=== PATIENT | male | born 1975 | race Caucasian/White ===

== ENCOUNTER 2018-12-12 11:06 | Outpatient (CLI) | payer MEDICAID, SELFPAY ==
--- NOTE | 2018-12-12 11:03 | DI.RAD_ITS ---
SYMPTOM/DIAGNOSIS: PAIN RIGHT SHOULDER: Two views. No priors. There are mild degenerative changes seen at the acromioclavicular joint. The glenohumeral joint appears well maintained. The bones are intact and normally mineralized. The soft tissues are unremarkable. IMPRESSION: No acute abnormality. Mild degenerative changes of the right AC joint.
== END 2018-12-12 11:26 ==
PROVIDERS: PCP General Practice; Visit Provider Physician Assistant Surgical
DX: M25.511 Pain in right shoulder (principal); M19.011 Primary osteoarthritis, right shoulder
CPT/HCPCS: 73030

== ENCOUNTER 2019-02-05 00:36 | Outpatient (CLI) | payer MEDICAID, SELFPAY ==
--- NOTE | 2019-02-05 10:50 | DI.MRI_ITS ---
SYMPTOM/DIAGNOSIS: TENDINITIS RIGHT SHOULDER MRI RIGHT SHOULDER: Routine noncontrast examination was performed. There is intermediate signal seen in the supraspinatus tendon anteriorly consistent with tendinosis. The infraspinatus, teres minor, and subscapularis tendons show normal signal The rotator cuff muscle shows normal signal and size. No significant muscular fatty atrophy is identified. The biceps tendon has a normal appearance and location. There is increased signal seen in the superior and posterior labrum consistent with a tear. The remainder of the labrum shows no acute abnormality. The articular cartilage at the glenohumeral joint appears well maintained. Mild hypertrophic changes are seen at the acromioclavicular joint consistent with osteoarthritis. Marrow signal is otherwise within normal limits. No evidence of an occult fracture or avascular necrosis is seen. The ligaments appear unremarkable. No focal fluid collection or soft tissue mass is appreciated. IMPRESSION: Hyperintense signal seen in the posterior superior labrum suspicious for a tear. 2. Tendinosis of the supraspinatus tenon but no evidence of a rotator cuff tear.
== END 2019-02-05 00:56 ==
PROVIDERS: PCP General Practice; Visit Provider Orthopaedic Surgery
DX: M75.81 Other shoulder lesions, right shoulder (principal); M25.511 Pain in right shoulder
CPT/HCPCS: 73221

== ENCOUNTER 2019-03-23 10:30 | Outpatient (CLI) | payer MEDICAID, SELFPAY ==
--- NOTE | 2019-03-23 10:31 | HPE_ITS ---
Assessment and Plan (1) DJD of right AC (acromioclavicular) joint: Current visit: No Status: Acute Plan: Educated patient on surgery covering surgical technique, recovery process, benefits and risks including but not limited to risk of infection, blood clot, damage to soft tissue/blood vessels/nerves in detail. After discussion patient gives verbal understanding of risks and elects to proceed with scheduling surgery. Patient had opportunity to have questions answered to their satisfaction. They will contact office if issues arise. Patient will continue to be scheduled for right distal clavicle excision with Dr. Soliman. History of Present Illness Narrative: Mr. Doshi is a 44-year-old right-hand dominant male who presents to clinic for pre-operative visit for scheduled right distal clavicle excision with Dr. Soliman. Patient has been experiencing severe right shoulder discomfort for several months. He has numerous trauma in the past that did not require formal intervention. Unfortunately, he has been experiencing right shoulder pain that interferes with his ability to throw and causes him to wake up frequently throughout the night. Pain is elicited with daily activities as well including reaching to the back seat, tucking in his shirt and reaching overhead. When he did not experience improvement with an injection and PT he underwent a MRI. As per Dr. Soliman's note on 02/06/19 his MRI showed significant DJD of the AC joint and no evidence of full-thickness rotator cuff tear. Due to his continued pain despite conservative therapy he was offered surgical intervention and elected to proceed. Denies any recent injury or trauma. Pertinent Surgical Information Denies past medical history of: Hypertension, stroke, cardiac issues, angina, asthma, COPD, sleep apnea, renal issues, liver issues, hepatitis, gastrointestinal issues, ulcers, hyperlipidemia, bleeding disorders, seizures, migraines, anxiety, depression, diabetes, autoimmune disorders, thyroid issues Denies prior complications from surgery or anesthesia. However, states he noticed difficulty focusing his vision following his lumbar spine surgery. Reports he continues to have difficulty when attempting to focus. Denies any additional issues or complications. Review of Systems Constitutional Denies fever(s), Denies frequent falls and Denies headache(s) Eyes Denies change in vision ENT Denies dizziness, Denies ear discharge, Denies headache(s), Denies epistaxis, Denies nasal discharge and Denies sore throat Cardiovascular Denies chest pain, Denies rapid heart rate, Denies irregular heart rhythm, Denies dyspnea, Denies dyspnea on exertion and Denies slow heart rate Respiratory Denies cough, Denies dyspnea, Denies dyspnea on exertion and Denies wheezing Gastrointestinal Denies abdominal pain, Denies melena, Denies hematochezia, Denies constipation, Denies diarrhea, Denies nausea and Denies vomiting Genitourinary Denies hematuria, Denies dysuria and Denies urinary urgency Musculoskeletal Reports as per HPI, Denies numbness and Denies tingling Neurologic Denies dizziness, Denies frequent falls, Denies headache(s), Denies numbness and Denies tingling Psychiatric Denies anxiety and Denies depression Allergic/Immunologic Denies wheezing PFSH Medical History (Updated 03/23/19 @ 10:32 by Karen Wong) DJD of right AC (acromioclavicular) joint (Acute) Surgical History (Updated 03/23/19 @ 10:14 by Karen Wong) Appendectomy Cholecystectomy History of spinal surgery (Acute) lower lumbar unknown details Family History (Updated 03/23/19 @ 10:16 by Karen Wong) Maternal Grandfather Stroke Myocardial infarct Paternal Grandfather Myocardial infarct Meds Home Medications Medication Instructions Recorded Confirmed Type Unknown [No Known Home Meds] 01/23/19 03/23/19 History Allergies Allergy/AdvReac Type Severity Reaction Status Date / Time No Known Drug Allergies Allergy Unverified 03/23/19 10:32 Exam Const General: cooperative and no acute distress [facility] Head: normal to inspection, normocephalic and atraumatic Ears: external ears normal General nose exam: external nose normal and no nasal discharge Face and sinus: face symmetric Mouth: oral mucosae normal, lip normal, tongue normal and moist mucous membranes Teeth and gingiva: dentition normal Throat: posterior oropharynx normal Eyes General: appearance normal, both eyes and all related structures Pupils: PERRL EOM: EOM intact bilaterally Neck Neck: trachea midline Carotids: normal carotid upstroke Lymphatic: no lymphadenopathy noted Resp Effort & Inspection: normal respiratory effort and able to speak in complete sentences Auscultation: clear to auscultation bilaterally, no rales, no rhonchi and no wheezes Cardio Heart Sounds: S1 normal, S2 normal and no murmurs Pulses: radial pulses present bilaterally Skin General skin exam: no rashes or lesions noted
== END 2019-03-23 10:50 ==
PROVIDERS: PCP General Practice; Visit Provider Orthopaedic Surgery
DX: M19.011 Primary osteoarthritis, right shoulder (principal); Z01.818 Encounter for other preprocedural examination
CPT/HCPCS: NC

== ENCOUNTER 2019-03-26 09:29 | Day surgery (SDC) | payer MEDICAID, SELFPAY ==
[2019-03-26] VITALS (8 sets, daily range): BP systolic 101–133; BP diastolic 65–95; PULSE 59–73; RESP 11–17; TEMP 36.4–37.1; O2SAT 96–99
[2019-03-26] MEDS: Lactated Ringers 1,000 ML 80 ML IV (10:05)
[2019-03-26] MEDS: ceFAZolin 2 GM/50 ML BAG IVPB (12:26)
--- NOTE | 2019-03-26 13:17 | W.PM.DSUDISC ---
Discharge Plan Disposition Patient Disposition: HOME Condition: Good Discharge Details Reason For Visit: Excision R distal clavicle Attending Provider: Yung Soliman Primary Care Provider: Jose R Peña Home Meds and New Rx's Prescriptions: New hydrocodone-acetaminophen 5-325 mg tablet 1 tab PO Q6H PRN (Reason: pain) Qty: 10 RF: 0 Continued naproxen sodium 220 mg Capsule 220 mg PO PRN PRNRF: 0 Discharge Instructions Additional Instructions: Sling for comfort. May take R arm out of sling as often and for as long as your discomfort allows. Wean yourself out of sling completely when your pain is minimal. May remove dressings,shower and get incision wet after 48 hours. Leave incision uncovered when it is dry and sealed. Apply icebag to top of R shoulder 4 times/day for 1 hour each time to decrease pain and swelling. Use R arm as much as your discomfort allows you to. Outpatient physical therapy for ROM of R shoulder on or Tuesday. Follow up with in 2 weeks. Take 2 naprosyn tabs (220 mg each) twice/day for 10 days to decrease swelling and inflammation. Take hydrocodone for breakthru pain, if needed. Referrals: Yung Soliman MD [ [facility] STAFF PHYSICIAN] - (f/u in 2 weeks.) Equipment/Supplies: Sling Activity:: Activity as Tolerated Remove Dressings/Wound Care:: 48 hours Shower/Bathe:: 48 hours Diet:: As Tolerated Discharge Orders Discharge Orders: Discharge Order (Routine); Ordered 03/26/19 Ordered By: Yung Soliman DS: Diagnosis Discharge Diagnosis (1) DJD of right AC (acromioclavicular) joint: Status: Acute
[2019-03-26] MEDS: oxyCODONE-CR 10 MG TABCR PO (15:02)
--- NOTE | 2019-03-26 17:17 | ROE_ITS ---
DATE OF PROCEDURE: March 26, 2019 PREOPERATIVE DIAGNOSIS: DJD AC joint, right. POSTOPERATIVE DIAGNOSIS: Same. PROCEDURE: Excision of the distal clavicle on the right. ANESTHESIA: General, Jose R Kapoor CRNA SURGEON: Yung Soliman M.D. BENEFITS ANALYST: Wiley Soriano INDICATIONS: This is a 44-year-old white male with persistent right shoulder pain, worsening over th e last years' time. This is interfering with his work activities, as well as recreational activities . Examination showed the AC joint is the source of pain. The rotator cuff appeared intact. Subacro mial space injections failed to alleviate his discomfort. Distal clavicle excision was recommended t o alleviate his pain on a permanent basis. The risks and complications of the procedure were explain ed to the patient in detail preoperatively. PROCEDURE: The patient was taken to the Operating Room on 03/26/19. He was placed supine on the opera ting table and a general anesthetic was administered. He was placed in the jackson chair position. T he right shoulder was then prepped and draped free in the usual sterile fashion. A longitudinal incision about 3 inches in length was made, centered over the AC joint on the right. The incision was carried down to the AC joint capsule. A longitudinal incision was made in the AC jessi int capsule and the distal clavicle was subperiosteal exposed. The distal centimeter of the clavicl e was then transected using the oscillating saw and excised. On inspection there was marked hypertro phic spurring of the distal clavicle with no normal articular cartilage visible on gross inspection. The resected distal clavicle was irrigated with saline solution and then packed with bone wax to eubanks it postoperative bleeding. All bleeders were cauterized. The wound margins were infiltrated with 0. 5% Marcaine with an epinephrine solution from the skin down to the AC joint capsule. The AC joint ca psule and periosteum over the distal clavicle were approximated with interrupted [id number] sutu res of #1 Vicryl suture material. The skin and subcu were approximated with a running subcuticular c losure with #4-0 Vicryl, supplemented with Steri-Strips. The wound was dressed with Xeroform gauze, sterile gauze 4x4's, ABD pad and taped in place for a light pressure dressing. The right arm was britni cammy in a sling. The patient's anesthesia was reversed without complication. Blood loss was 25 cc's. The patient was discharged to recovery in good condition. The patient was discharged home from the Day Surgery Unit when fully recovered from his general anest hesia. He was given instructions to use the sling for comfort. He may leave his right arm out of th e sling as often and for as long as discomfort allows. He may wean himself out of his sling as soon as his pain allows. He may remove his dressings, shower and get his incision wet in 48 hours. He ca n leave his incision uncovered when it is dry and sealed. He will take [id number] Naprosyn 220 mg, two tablets b.i.d. for ten days. He was given a prescription for breakthrough pain of Hydrocodo ne with APAP 5/325, one tablet p.o. q6h p.r.n. He will begin outpatient physical therapy for range o f motion of his right shoulder on or 03/30/19. He will follow-up with me in two weeks.
== END 2019-03-26 15:31 | disposition home or self-care (01) ==
PROVIDERS: PCP General Practice; Visit Provider Orthopaedic Surgery
PROC: (CPT 23120; principal; 2019-03-26 11:15)
DX: M19.011 Primary osteoarthritis, right shoulder (principal); M25.511 Pain in right shoulder
CPT/HCPCS: 23120; J0131; J0690; J1100; J1200; J1885; J2250; J2405; J3010; L3650

== ENCOUNTER 2020-01-02 11:47 | Emergency (ER) | payer MEDICAID, SELFPAY ==
[2020-01-02 11:51] VITALS: BP 127/92; PULSE 63; RESP 15; TEMP 37.1; O2SAT 100
--- NOTE | 2020-01-02 12:15 | DI.RAD_ITS ---
EXAM: XR WRIST RT COMPLETE CLINICAL HISTORY: Laceration with emliy hook. TECHNIQUE: 2D digital imaging was performed. COMPARISON: No exams were available for comparison FINDINGS: BONES: No acute fracture is present. No bony destructive lesion is seen. JOINTS: The carpal bones are normally aligned. SOFT TISSUE: Normal. IMPRESSION: Unremarkable radiographs of the right wrist. DATA REPOSITORY: RADIATION DOSE DELIVERED:
[2020-01-02] MEDS: Lidocaine 2% Multi-Dose 50 ML VIAL IJ (13:17)
--- NOTE | 2020-01-02 13:22 | ED.GENADUL_ITS ---
Discharge Plan Disposition Patient Disposition: HOME Discharge Details Chief Complaint: Laceration Clinical Impression: Laceration of wrist Primary Care Provider: Unknown,Unknown ED Provider: Alberto Thakkar Home Meds and New Rx's Prescriptions: Continued naproxen sodium 220 mg Capsule 220 mg PO PRN PRNRF: 0 Discharge Instructions Instructions: Laceration (ED) Additional Instructions: Keep the area clean and dry, change antibiotic dressing daily. Avoid hyperextension or flexion and attempt to not tear out the sutures. Grti-szk-uupnliz Tylenol and/or Motrin as directed for discomfort. Please watch for new or worsening symptoms and return to the ER for any concerns. Sutures removed in approximately 10 days Medical Decision Making Patient who is right-hand dominant presents for a right hand-wrist laceration. Tetanus up-to-date. Neuro, vascular, tendon intact. Will obtain x-ray to rule any bony involvement or foreign body and then will repair X-ray unremarkable as read by me and confirmed by radiology. Laceration repaired without difficulty. See procedural note. Antibiotic dressing and Mauricio wrap applied. Patient has no additional questions or concerns HPI General Mode of arrival: ambulatory . Date/Time Provider Initiated Documentation: 01/02/20 11:57 . Limitations to Documentation: no limitations . Information obtained by: patient . HPI Narrative: 44-year-old gentleman who is right-hand dominant, presents after cutting himself accidentally while painting on a emily hook. He reports mild discomfort at the site of laceration. Denies numbness, tingling, weakness. Tetanus status not the date. No additional questions or concerns Related Data Home Medications Medication Instructions Recorded Confirmed naproxen sodium 220 mg PO PRN PRN 03/23/19 01/02/20 Allergies Allergy/AdvReac Type Severity Reaction Status Date / Time No Known Drug Allergies Allergy Verified 01/02/20 12:12 General Stated Complaint: Laceration SCAR: 4 Review of Systems Constitutional Constitutional: Denies weakness Gastrointestinal Gastrointestinal: Denies nausea Musculoskeletal Musculoskeletal: Denies tingling Integumentary/Breasts Skin/Breast: Denies rash Neurologic Neurologic: Denies tingling and Denies weakness [facility] Medical History DJD of right AC (acromioclavicular) joint (Acute) Surgical History Appendectomy Cholecystectomy History of spinal surgery (Acute) lower lumbar discectomy unknown details Family History Maternal Grandfather Myocardial infarct Stroke Paternal Grandfather Myocardial infarct Other Cancer Social History Smoking/Tobacco Use Status: Former Tobacco Use Alcohol Intake: never Drug use: Never Substance use type: does not use Current gender identity: male Do you feel safe at home: Yes Do you feel safe in your relationship?: Yes Exam Const General: cooperative, healthy appearing, comfortable and no acute distress Orientation: alert and awake HENMT Head: normal to inspection, normocephalic and atraumatic Mouth: moist mucous membranes Eyes Conjunctivae: conjunctivae normal Neck Neck: normal visual inspection, trachea midline and supple Resp Effort & Inspection: normal respiratory effort and able to speak in complete sentences Cardio Rate: regular rate Rhythm: regular rhythm Skin General skin exam: no rashes or lesions noted Neuro General: patient alert, patient awake, moves all extremities and no focal motor deficits Sensory Exam: no sensory deficits noted Extrem General: full ROM and capillary refill normal Hand/finger images: 1. Half centimeter well approximated laceration. No active bleeding. No foreign body. Neuro, vascular, tendon intact 2. 2.5 cm well approximated laceration. No active bleeding. No foreign body. Neuro, vascular, tendon intact Psych Appearance: grossly normal Mental Status: mental status grossly normal Course Vital Signs Vital signs: Vital Signs Temperature 37.1 C 01/02/20 11:51 Pulse 63 01/02/20 11:51 Respiratory Rate 15 01/02/20 11:51 Blood Pressure 127/92 H 01/02/20 11:51 Pulse Oximetry 100 01/02/20 11:51 Temperature 37.1 C 01/02/20 11:51 Temperature Source Temporal Artery Scan 01/02/20 11:51 Pulse 63 01/02/20 11:51 Respiratory Rate 15 01/02/20 11:51 Respiratory Effort Non-Labored 01/02/20 11:55 Blood Pressure 127/92 H 01/02/20 11:51 Blood Pressure Position Sitting 01/02/20 11:51 Pulse Oximetry 100 01/02/20 11:51 Oxygen Delivery Method Room Air 01/02/20 11:51 Oxygen Flow Rate 0 01/02/20 11:51 Pain Level 1 01/02/20 11:51 Procedures Laceration Laceration 1: Site: hand Side (If applicable): right Size (cm): 0.5 Description: linear Depth: simple, single layer Local Anesthetic: Lidocaine 2% Amount of anesthesia used (mL): 2 Pre-repair: wound explored, irrigated extensively and deep structures intact Skin layer closed with: nylon Size (cm): 4-0 Number of sutures: 1 Technique: simple, interrupted Laceration 2: Site: hand Side (If applicable): right Size (cm): 2.5 Description: linear Depth: simple, single layer Local Anesthetic: Lidocaine 2% Amount of anesthesia used (mL): 4 Pre-repair: wound explored, irrigated extensively and deep structures intact Skin layer closed with: nylon Size (cm): 4-0 Number of sutures: 5 Technique: simple, interrupted
== END 2020-01-02 13:30 | disposition home or self-care (01) ==
LOC: ER 13:53
PROVIDERS: Emergency Provider Physician Assistant
DX: S61.511A Laceration without foreign body of right wrist, initial encounter (principal); W26.8XXA Contact with other sharp object(s), not elsewhere classified, initial encounter
CPT/HCPCS: 12002; 90471; 99283; 73110; 99281

== ENCOUNTER 2020-02-21 12:54 | Emergency (ER) | payer MEDICAID, SELFPAY ==
[2020-02-21 13:01] VITALS: BP 132/77; PULSE 89; RESP 18; TEMP 38.3; O2SAT 95
--- NOTE | 2020-02-21 13:44 | ED.GENADUL_ITS ---
Discharge Plan Disposition Patient Disposition: HOME Condition: Stable Discharge Details Chief Complaint: Fever Clinical Impression: Pharyngitis Primary Care Provider: None,None ED Provider: Alberto Thakkar Home Meds and New Rx's Prescriptions: Continued naproxen sodium 220 mg Capsule 220 mg PO PRN PRNRF: 0 Discharge Instructions Instructions: Pharyngitis (ED) Additional Instructions: Rapid strep test negative. Culture pending. COVID pending. Quarantine likely discussed. Rest, plenty of fluids to avoid dehydration, [id number] medications as directed for symptomatic control. Please watch for new or worsening symptoms and return to the ER for any concerns. I do recommend that you contact your 's primary care provider as you have planned to establish a new local primary care provider for yourself Stand Alone Forms: POSITIVE COVID-19/TO BE TESTED Medical Decision Making 45-year-old gentleman with 1 day history of sore throat, swollen glands, body aches. He does present with a mild fever here in the ER. He appears well, nontoxic. Airway is patent. Lungs are clear to auscultation. Feels that this is most likely a viral pharyngitis but will obtain rapid strep to rule out strep pharyngitis. Patient is primarily concerned of COVID. Will obtain COVID swab. Lungs are clear to auscultation. O2 sats are 95% on room air. I do not believe that hematology laboratories or chest x-ray are indicated Rapid strep negative, culture pending. Covid Pending. Patient is comfortable discharge at this time Medical Records Medical records reviewed: Yes I reviewed the patient's medical records. HPI General Mode of arrival: ambulatory . Date/Time Provider Initiated Documentation: 02/21/20 13:09 . Limitations to Documentation: no limitations . Information obtained by: patient . HPI Narrative: 45-year-old male with no significant past medical history presenting to the ER with sore throat, swollen glands, mild body aches and chills. He took [id number] medication with some relief. Reports the pain is mild at rest moderate with swallowing. He denies obvious fever. He denies headache, posterior neck pain, chest pain, shortness of breath, cough abdominal pain, nausea, vomiting, dysuria, diarrhea, skin rash. No recent travel. Reports that his son had similar symptoms 1 week ago. He is primarily concerned about COVID Related Data Home Medications Medication Instructions Recorded Confirmed naproxen sodium 220 mg PO PRN PRN 03/23/19 02/21/20 Allergies Allergy/AdvReac Type Severity Reaction Status Date / Time No Known Drug Allergies Allergy Verified 02/21/20 13:04 General Stated Complaint: Fever SCAR: 3 Review of Systems Constitutional Constitutional: Denies fatigue, Denies fever(s) and Denies headache(s) Eyes Eyes: Denies eye discharge ENT Ears, Nose, Mouth, and Throat: Denies headache(s), Denies nasal discharge, Denies neck pain and Reports sore throat Cardiovascular Cardiovascular: Denies chest pain and Denies dyspnea Respiratory Respiratory: Denies cough and Denies dyspnea Gastrointestinal Gastrointestinal: Denies abdominal pain, Denies nausea and Denies vomiting Genitourinary Genitourinary: Denies dysuria Musculoskeletal Musculoskeletal: Denies neck pain Integumentary/Breasts Skin/Breast: Denies rash Neurologic Neurologic: Denies headache(s) Endocrine Endocrine: Denies fatigue PFS Medical History DJD of right AC (acromioclavicular) joint (Acute) Surgical History Appendectomy Cholecystectomy History of spinal surgery (Acute) lower lumbar discectomy unknown details Family History Maternal Grandfather Myocardial infarct Stroke Paternal Grandfather Myocardial infarct Other Cancer Social History Smoking/Tobacco Use Status: Former Tobacco Use Alcohol Intake: never Drug use: Never Substance use type: does not use Current gender identity: male Do you feel safe at home: Yes Do you feel safe in your relationship?: Yes Exam Const General: cooperative, healthy appearing, comfortable and no acute distress Orientation: alert, awake and oriented x3 HENMT Head: normal to inspection, normocephalic and atraumatic Ears: external ears normal, TM's normal bilaterally and EAC's normal Mouth: moist mucous membranes Throat: uvula midline, posterior oropharynx abnormal erythema; no exudates, uvula not displaced and no uvular edema Eyes Conjunctivae: conjunctivae normal Sclera: sclerae normal Neck Neck: normal visual inspection, full ROM, no meningeal signs, trachea midline, supple and tender (Lymphadenopathy, anterior-superior, shotty in nature) Resp Effort & Inspection: normal respiratory effort and able to speak in complete sentences Auscultation: clear to auscultation bilaterally Cardio Rate: regular rate Rhythm: regular rhythm GI Palpation: soft and nontender Skin General skin exam: no rashes or lesions noted Neuro General: patient alert, patient awake, patient oriented x3, moves all extremities and no focal motor deficits Cranial Nerves: CN's II-XI intact bilaterally Cognition: normal cognition Speech: speech normal Motor: muscle tone normal throughout Sensory Exam: no sensory deficits noted Psych Appearance: grossly normal Mental Status: mental status grossly normal Course Vital Signs Vital signs: Vital Signs Temperature 38.3 C H 02/21/20 13:01 Pulse 89 02/21/20 13:01 Respiratory Rate 18 02/21/20 13:01 Blood Pressure 132/77 02/21/20 13:01 Pulse Oximetry 95 02/21/20 13:01 Temperature 38.3 C H 02/21/20 13:01 Temperature Source Temporal Artery Scan 02/21/20 13:01 Pulse 89 02/21/20 13:01 Respiratory Rate 18 02/21/20 13:01 Respiratory Effort Non-Labored 02/21/20 13:04 Blood Pressure 132/77 02/21/20 13:01 Blood Pressure Position Sitting 02/21/20 13:01 Pulse Oximetry 95 02/21/20 13:01 Oxygen Delivery Method Room Air 02/21/20 13:01 Oxygen Flow Rate 0 02/21/20 13:01 Pain Level 5 02/21/20 13:01 Lab/Test Results Lab/Test Results: POC Strep Test-KELBY(Rapid) Start: 02/21/20 13:09 Freq: .Rapid Strep Test Status: Active Protocol: Document 02/21/20 13:31 PS (Rec: 02/21/20 13:31 PS [email or web address]) Strep test-KELBY(Rapid)-POC POC-Strep test-KELBY (Rapid) Negative POC-Strep test-KELBY (Rapid) Negative
[2020-02-23 14:14] LABS: SARS-CoV-2 RNA Undetected (Undetected); SARS-CoV-2 Specimen Source Nasopharynx
--- NOTE | 2020-02-27 09:47 | NUR.NOTE ---
Patient called at 0947 requesting results of covid tested. advised patient that test results were negative for covid.
== END 2020-02-21 14:05 | disposition home or self-care (01) ==
PROVIDERS: Emergency Provider Physician Assistant
DX: J02.9 Acute pharyngitis, unspecified (principal); R50.9 Fever, unspecified; Z11.59 Encounter for screening for other viral diseases
CPT/HCPCS: 36415; 87880; 99283; U0003

== ENCOUNTER 2020-04-11 14:59 | Outpatient (REF) | payer MEDICAID, SELFPAY ==
[2020-04-11 20:23] LABS: ALT 30 U/L (16-63); AST 23 U/L (15-37); Albumin 4.4 g/dL (3.4-5.0); Alkaline Phosphatase 81 U/L (46-116); Anion Gap 4.1 mmol/L (3-11); BUN 16 mg/dL (7-18); Bilirubin, Total 0.9 mg/dL (0.2-1.0); CO2 32.9 mmol/L (21.0-32.0); CREATININE 1.03 mg/dL (0.70-1.30); Calcium 9.4 mg/dL (8.5-10.1); Calculated LDL 124 mg/dL (<100); Chloride 102 mmol/L (98-107); Cholesterol 178 mg/dL (<200); Glucose 87 mg/dL (74-106); HDL Cholesterol 46 mg/dL (40-60); Potassium 4.6 mmol/L (3.5-5.1); Sodium 139 mmol/L (136-145); Total Protein 7.6 g/dL (6.4-8.2); Triglyceride 42 mg/dL (<150)
[2020-04-14 10:08] LABS: TSH (W/Ref FT4) 1.25 uIU/mL (0.36-3.74)
== END 2020-04-11 15:19 ==
LOC: NCHCN 14:59
PROVIDERS: Visit Provider Nurse Practitioner Family
DX: Z13.220 Encounter for screening for lipoid disorders (principal); Z13.228 Encounter for screening for other metabolic disorders; Z13.29 Encounter for screening for other suspected endocrine disorder
CPT/HCPCS: 80053; 80061; 84443

== ENCOUNTER 2020-05-13 01:24 | Outpatient (RCR) | payer MEDICAID, SELFPAY ==
[2020-05-13] MEDS: Cosyntropin 0.25 MG VIAL IM (07:25)
[2020-05-13 18:23] LABS: Cortisol (Baseline) 19 ug/dL (4-23)
== END 2020-05-17 23:59 | disposition home or self-care (01) ==
LOC: INF 01:24
PROVIDERS: Nurse Practitioner Family; Visit Provider Nurse Practitioner Family
DX: E27.40 Unspecified adrenocortical insufficiency (principal)
CPT/HCPCS: 36415; 80400; 82533; 87206; 96372; J0834

== ENCOUNTER 2022-04-08 19:15 | Outpatient (REF) | payer MEDICAID, SELFPAY ==
[2022-04-08 19:26] LABS: HGB 14.8 g/dL (13.5-17.5); MCH 29.5 pg (27.0-33.0); MCHC 33.6 % (32.0-36.0); MCV 88 fL (80-95); MPV 10.9 fL (8.0-11.0); Platelet Count 270 10^3/uL (130-400); RBC 5.01 10^6/uL (4.36-5.78); RDW 12.1 % (11.8-14.1); RDW-SD 39.5 fL; WBC 6.46 10^3/uL (4.4-10.8)
[2022-04-08 20:03] LABS: ALT 28 U/L (16-63); AST 25 U/L (15-37); Albumin 3.7 g/dL (3.4-5.0); Alkaline Phosphatase 92 U/L (46-116); Anion Gap 6.9 mmol/L (3-11); BUN 22 mg/dL (7-18); Bilirubin, Total 0.4 mg/dL (0.2-1.0); CO2 29.1 mmol/L (21.0-32.0); CREATININE 1.3 mg/dL (0.70-1.30); Calcium 8.7 mg/dL (8.5-10.1); Chloride 104 mmol/L (98-107); Estimated GFR 67.34 (mL/min/1.73m2); Glucose 98 mg/dL (74-106); Potassium 4.1 mmol/L (3.5-5.1); Sodium 140 mmol/L (136-145); Total Protein 6.9 g/dL (6.4-8.2)
[2022-04-09 19:39] LABS: PSA, Screening 0.5 ng/mL (<=2.5)
[2022-04-16 12:42] LABS: Testosterone, Free 13.3 ng/dL (4.26-16.4); Testosterone, Total 658 ng/dL (240-950)
== END 2022-04-08 19:16 | disposition home or self-care (01) ==
LOC: NCHCN 19:15
PROVIDERS: Visit Provider Nurse Practitioner Family
DX: R53.83 Other fatigue (principal); N39.9 Disorder of urinary system, unspecified; Z12.5 Encounter for screening for malignant neoplasm of prostate
CPT/HCPCS: 80053; 84153; 84402; 84403; 85027

== ENCOUNTER 2024-03-06 19:11 | Outpatient (REF) | payer BC, MEDICAID, SELFPAY ==
[2024-03-06 21:44] LABS: ALT 39 U/L (16-63); AST 27 U/L (15-37); Albumin 4.1 g/dL (3.4-5.0); Alkaline Phosphatase 83 U/L (46-116); Anion Gap 8.3 mmol/L (3-11); BUN 21 mg/dL (7-18); Bilirubin, Total 0.71 mg/dL (0.2-1.0); CO2 29.7 mmol/L (21.0-32.0); CREATININE 1.2 mg/dL (0.70-1.30); Calcium 9.2 mg/dL (8.5-10.1); Calculated LDL 132 mg/dL (<100); Chloride 102 mmol/L (98-107); Cholesterol 194 mg/dL (<200); Estimated GFR 73.22 (mL/min/1.73m2); Glucose 90 mg/dL (74-106); HDL Cholesterol 55 mg/dL (40-60); Potassium 4.7 mmol/L (3.5-5.1); Sodium 140 mmol/L (136-145); Triglyceride 37 mg/dL (<150)
[2024-03-07 19:01] LABS: PSA, Screening 0.6 ng/mL (<=3.5)
== END 2024-03-06 19:12 | disposition home or self-care (01) ==
LOC: NCHCN 19:11
PROVIDERS: PCP Nurse Practitioner Family; Visit Provider Nurse Practitioner Family
DX: Z12.5 Encounter for screening for malignant neoplasm of prostate (principal); Z13.220 Encounter for screening for lipoid disorders
CPT/HCPCS: 80053; 80061; 84153

== ENCOUNTER 2024-03-13 02:14 | Outpatient (CLI) | payer BC, MEDICAID, SELFPAY ==
--- NOTE | 2024-03-13 12:30 | DI.US_ITS ---
APPROVED REPORT EXAM: Comprehensive 2D, Doppler, and color-flow Echocardiogram Patient Location: Out-Patient Filler Sifter Helper: Jeanie Lujan RDCS (AE) Indications: History of valvular insufficiency, Exercise intolerance Other Information Study Quality: Good Conclusion Normal left ventricular wall thickness and chamber size. Ejection fraction is 60%. Wall motion is n ormal Normal right ventricular size and function Both atria are normal in size There are no structural valvular abnormalities Trace mitral and tricuspid regurgitation Estimated right ventricular systolic pressure is 20 mmHg Wall motion Left Ventricle The left ventricle is normal size. The left ventricular systolic function is normal. The left ventric ular ejection fraction is within the normal range. There is normal left ventricular wall thickness. T here is normal LV segmental wall motion. There is no ventricular septal defect visualized. LVEF is 60 %. Right Ventricle The right ventricle is normal size. The right ventricular systolic function is normal. Atria The left atrium size is normal. The right atrium size is normal. The interatrial septum is intact wit h no evidence for an atrial septal defect. Aortic Valve The aortic valve is normal in structure. Aortic valve is trileaflet. There is no aortic valvular sten osis. No aortic regurgitation is present. Mitral Valve The mitral valve is normal in structure. No evidence of mitral valve stenosis. Trace mitral regurgita tion. Tricuspid Valve The tricuspid valve is normal in structure. There is no tricuspid valve stenosis. Trace tricuspid reg urgitation. The RVSP is 20.1_ mmHg. Pulmonic Valve The pulmonary valve is normal in structure. There is no pulmonic valvular stenosis. Trace pulmonic re gurgitation. Great Vessels The aortic root is normal in size. The ascending aorta is normal in size. Aortic arch is normal in ca liber. IVC is normal in size and collapses >50% with inspiration. Pericardium There is no pericardial effusion. 2D Dimensions IVSD d PLAX 0.90 cm M: 0.6-1.2 Ao Root d 3.02 cm M: 3.1 - 3.7 LVPW d PLAX 0.91 cm M: 0.6 - 1.2 Ao Asc Diam d 3.30 cm M: 2.6 - 3.4 LVID d PLAX 5.12 cm M: 4.2 - 5.8 LVDs 3.55 cm M: 2.5 - 4.0 LV EF Teichholz 57.9 % FS 30.71 % LV EDV (Teich) 125.2 mL LV ESV (Teich) 52.7 mL M-Mode TAPSE 2.45 cm (M/F) >1.7 Auto EF LV EDV A4C 146.0 mL LV EDV A2C 124.2 mL LV EDV BP 135.1 mL LV ESV A4C 63.4 mL LV ESV A2C 55.1 mL LV ESV BP 60.3 mL LVEF(%) A4C 56.6 % LVEF(%) A2C 55.6 % LVEF(%) BP 55.4 % LV SV A4C 82.6 ml LV SV A2C 69.1 ml LV SV BP 74.8 ml LV CO A4C 5.0 L/min LV CO A2C 4.0 L/min LV CO BP 4.5 L/min HR A4C 59.98 BPM HR A2C 57.31 BPM LV EDV Index (BP) LA Volume LA Length A4C 5.6 cm LA Length A2C 4.9 cm LA Area A4C s 15.92 cm2 LA Area A2C s 13.52 cm2 LA Vol A4C A-L 38.13 mL LA Vol A2C A-L 31.41 mL LA Vol Biplane A-L 37.0 mL LA Vol/BSA A4C A-L LA Vol/BSA A2C A-L LA Vol/BSA BP A-L 19.7 mL/m2 LA Vol A4C MOD 33.9 mL LA Vol A2C MOD 28.4 mL LA Vol BP MOD 32.7 mL RA Volume RA Area A4C 19.6 cm2 RA ESV A4C (A-L) 58.8mL RA Vol/BSA A4C A-L RA Length A4C 5.5 cm RA ESV A4C (MOD) 54.2mL LV Diastology MV E' medial 0.075 (>0.07 m/s) MV E Vmax 0.81 (0.4-1.3 m/s) MV E/E' MED 10.67 (<14) MV A Vmax 0.90 (0.4-1.3 m/s) MV E' lateral 0.102 (>0.1 m/s) E/A Ratio 0.9 MV E/E' LAT 7.87 (<14) MV E' Average 0.089 m/s MV E/E'(average) 9.06 Aortic Valve AoV Vmax 1.31 m/s LVOT Vmax 1.13 m/s AoV Peak Grad 6.9 mmHg LVOT Peak Grad 5.1 mmHg AoV Area (Vmax) 2.74 cm2 LVOT VTI 0.226 m AoV VTI 0.302 m LVOT Mean Grad 2.7 mmHg AoV Mean Nabil. 0.96 m/s LVOT SV 71.57 mL AoV Mean Grad 4.1 mmHg LVOT Diam s 2.00 cm AoV Area (VTI) 2.37 cm2 AV Regurg Peak Gr. 6.86 mmHg Velocity Ratio 0.86 Mitral Valve MV DT 103 (160-240 msec) MV Vmax TIPS 0.79 m/s MV Mean Grad 1.2 (<2mmHg) MV VTI 0.324 m Pulmonary Valve PV Vmax 0.94 (0.5-1.5 m/s) RVOT Vmax 0.75 m/s PV Peak Grad 3.5 mmHg RVOT Peak Gr. 2.3 mmHg PV Mean Nabil 0.64 m/s RVOT VTI 0.149 m PV Mean Grad 1.9 mmHg RVOT Mean Gr. 1.3 mmHg Tricuspid Valve RA Pressure 3.00 mmHg TR Vmax 2.07 m/s TV S' 0.19 m/s TR Peak Grad 17.1 mmHg RVSP (TR) 20.1 mmHg
== END 2024-03-13 02:34 ==
PROVIDERS: PCP Nurse Practitioner Family; Visit Provider Nurse Practitioner Family
DX: Z86.79 Personal history of other diseases of the circulatory system (principal); R68.89 Other general symptoms and signs
CPT/HCPCS: 93306

== ENCOUNTER 2025-04-17 14:00 | Outpatient (CLI) | payer BC, SELFPAY ==
--- NOTE | 2025-04-17 13:30 | DI.RAD_ITS ---
Exam(s) XR SHOULDER RT COMPLETE 2+V EXAM: XR SHOULDER RT COMPLETE 2+V CLINICAL HISTORY: RIGHT SHOULDER PAIN. TECHNIQUE: 2D digital imaging was performed. Two views. COMPARISON: CR XR shoulder RT complete 2+V from 12/12/2018 FINDINGS: BONES: No acute fracture is present. No bony destructive lesion is seen. JOINTS: No dislocation present. No significant degenerative changes. SOFT TISSUE: Normal. IMPRESSION: Unremarkable radiographs of the right shoulder. DATA REPOSITORY: RADIATION DOSE DELIVERED:
--- NOTE | 2025-04-17 14:00 | DI.RAD_ITS ---
Exam(s) XR JOINT SURVEY 1V XR SHOULDER RT COMPLETE 2+V EXAM: XR SHOULDER RT COMPLETE 2+V CLINICAL HISTORY: RIGHT SHOULDER PAIN. TECHNIQUE: 2D digital imaging was performed. Two views. COMPARISON: CR XR shoulder RT complete 2+V from 12/12/2018 FINDINGS: BONES: No acute fracture is present. No bony destructive lesion is seen. JOINTS: No dislocation present. No significant degenerative changes. SOFT TISSUE: Normal. IMPRESSION: Unremarkable radiographs of the right shoulder. DATA REPOSITORY: RADIATION DOSE DELIVERED:
== END 2025-04-17 14:01 | disposition home or self-care (01) ==
PROVIDERS: PCP Nurse Practitioner Family; Visit Provider Student in an Organized Health Care Education/Training Program
DX: M25.511 Pain in right shoulder (principal)
CPT/HCPCS: 73030; 77073

== ENCOUNTER 2025-05-27 10:37 | Outpatient (CLI) | payer BC, SELFPAY ==
[2025-05-27 14:08] LABS: Abs Immature Grans 0.02 10^3/uL (0.0-0.06); HCT 45.7 % (40.0-50.0); HGB 15.7 g/dL (13.5-17.5); Immature Grans % 0.3 %; MCH 29.5 pg (27.0-33.0); MCHC 34.4 % (32.0-36.0); MCV 86 fL (80-95); MPV 9.6 fL (8.0-11.0); Platelet Count 324 10^3/uL (130-400); RBC 5.32 10^6/uL (4.36-5.78); RDW 12.3 % (11.8-14.1); RDW-SD 38.5 fL; WBC 7.29 10^3/uL (4.4-10.8)
[2025-05-27 14:24] LABS: ALT 58 U/L (16-63); AST 39 U/L (15-37); Albumin 3.5 g/dL (3.4-5.0); Alkaline Phosphatase 74 U/L (46-116); Amylase 69 U/L (25-115); Anion Gap 7.8 mmol/L (3-11); BUN 18 mg/dL (7-18); Bilirubin, Total 0.4 mg/dL (0.2-1.0); CO2 27.2 mmol/L (21.0-32.0); Calcium 8.1 mg/dL (8.5-10.1); Chloride 102 mmol/L (98-107); Glucose 100 mg/dL (74-106); Lipase 28 U/L (<78); Potassium 4.1 mmol/L (3.5-5.1); Sodium 137 mmol/L (136-145); Total Protein 6.9 g/dL (6.4-8.2)
[2025-05-28 10:43] LABS: Lyme Ab w Rflx to Lyme Confirm Negative (Negative)
[2025-05-30 15:52] LABS: B. miyamotoi PCR Negative (Negative); Babesia divergens/MO-1 Negative (Negative); Ehrlichia muris eauclairensis Negative (Negative)
== END 2025-05-27 10:38 | disposition home or self-care (01) ==
LOC: LOS 10:38
PROVIDERS: PCP Nurse Practitioner Family; Visit Provider Nurse Practitioner Family
DX: R10.11 Right upper quadrant pain (principal); M25.59 Pain in other specified joint
CPT/HCPCS: 36415; 80053; 83690; 87798; 82150; 85025; 86618

== ENCOUNTER 2025-06-12 02:13 | Outpatient (CLI) | payer BC, SELFPAY ==
[2025-06-18 14:22] LABS: Testosterone, Free 13.2 ng/dL (4.06-15.6)
== END 2025-06-12 02:14 | disposition home or self-care (01) ==
LOC: LOS 02:13
PROVIDERS: PCP Nurse Practitioner Family; Visit Provider Nurse Practitioner Family
DX: R53.83 Other fatigue (principal)
CPT/HCPCS: 36415; 84402; 84403